=== PATIENT | female | born 1990 | race Caucasian/White ===

== ENCOUNTER 2017-10-08 22:52 | Outpatient (CLI) | payer BC ==
[~2017-10-08] VITALS: Ht 177.8 cm; Wt 94.5 kg
[2017-10-08] MEDS ORDERED: ZANTAC 150MG T150 MG PO (23:16)
[2017-10-08 23:40] VITALS: BP 131/63; PULSE 88
[2017-10-09 00:10] VITALS: BP 124/82; PULSE 86
== END 2017-10-09 00:45 | disposition home or self-care (01) ==
LOC: LDRO 22:52
DX: Z34.83 Encounter for supervision of other normal pregnancy, third trimester (principal); Z3A.40 40 weeks gestation of pregnancy

== ENCOUNTER 2017-10-17 06:09 | Inpatient (IN) | payer BC ==
[~2017-10-17] VITALS: Ht 177.8 cm; Wt 95.0 kg
[2017-10-17] VITALS (26 sets, daily range): BP systolic 92–137; BP diastolic 56–81; PULSE 75–95; TEMP 97.3–98.3
[~2017-10-17 06:09] MED LIST: ZANTAC 150MG T150 MG PO
[2017-10-17 07:16] LABS: BASO % 0.4 % (0.0-2.0); EOS # 0.5 (0.0-0.7); EOS % 4.8 % (0-4.0); GRAN # 7.4 (1.4-6.5); LYMPH # 1.2 (1.2-3.4); LYMPH % 11.9 % (20.0-51.0); MEAN CELL VOLUME 89 fl (80.0-100.0); MEAN CORPUSCULAR HGB CONC 32 g/dl (33.0-37.0); MEAN PLATELET VOLUME 10.5 fl (7.4-10.4); MONO % 9.5 % (1.7-9.3); PLATELET COUNT 223 K/mm3 (130-400); REDCELL DISTRIBUTION WIDTH-CV 14.7 % (11.5-14.5)
[2017-10-17 07:17] LABS: HEMOGLOBIN 10.8 g/dl (12.5-16.0); MEAN CORPUSCULAR HEMOGLOBIN 28 pg (27.0-31.0)
[2017-10-17 07:18] LABS: HEMATOCRIT 33.7 % (37.0-47.0)
[2017-10-18] VITALS: BP 118/69; PULSE 74; TEMP 97.9
[2017-10-18 04:00] VITALS: BP 116/64; PULSE 85; TEMP 97.7
[2017-10-18 07:45] VITALS: BP 111/63; PULSE 84; TEMP 98.1
[2017-10-18 17:30] VITALS: BP 105/70; PULSE 86; TEMP 99.1
[2017-10-18 19:00] VITALS: BP 119/65; PULSE 80; TEMP 97.5
[2017-10-19 08:28] VITALS: BP 123/62; PULSE 81; TEMP 97.7
[2017-10-19] MEDS ORDERED: IBU600 MG PO (08:40)
[2017-10-19] MEDS ORDERED: PERCOCET 325 MG1 TA2 PO (08:40)
== END 2017-10-19 15:50 | disposition home or self-care (01) | DRG 775 ==
LOC: LDRO 06:09 → OB 06:33 → LDR 06:33 → OB 13:30
PROVIDERS: Obstetrics & Gynecology
PROC: 10E0XZZ Delivery of Products of Conception, External Approach (ICD-10-PCS; principal; 2017-10-17)
PROC: 0KQM0ZZ Repair Perineum Muscle, Open Approach (ICD-10-PCS; 2017-10-17)
DX: O48.0 Post-term pregnancy (principal); O36.0130 Maternal care for anti-D [Rh] antibodies, third trimester, not applicable or unspecified; O77.0 Labor and delivery complicated by meconium in amniotic fluid; O70.1 Second degree perineal laceration during delivery; Z3A.41 41 weeks gestation of pregnancy; Z37.0 Single live birth
CPT/HCPCS: J2590; J2795; J7120

== ENCOUNTER → 2017-10-26 | Outpatient (CLI) | payer BC ==
[~2017-10-26] MED LIST changes: +IBU600 MG PO; +PERCOCET 325 MG1 TA2 PO
== END ==
LOC: LAC 10:26
DX: Z39.1 Encounter for care and examination of lactating mother (principal); Z71.89 Other specified counseling

== ENCOUNTER → 2018-07-07 | Outpatient (CLI) | payer BC | LOC: MC.RAD 09:30 | DX: N63.10 Unspecified lump in the right breast, unspecified quadrant (principal) ==

== ENCOUNTER 2019-08-18 02:59 | Inpatient (IN) | payer BC ==
[2019-08-18] VITALS (29 sets, daily range): BP systolic 101–135; BP diastolic 58–82; PULSE 63–93; TEMP 97.5–98.5
[~2019-08-18] VITALS: Ht 177.8 cm; Wt 95.5 kg
[2019-08-18] MEDS ORDERED: PROTONIX20 MG PO (03:29)
[2019-08-18] MEDS ORDERED: ZANTAC 7575 MG PO (03:30)
[2019-08-18] MEDS ORDERED: TUMS500 MG PO (03:31)
[2019-08-18] MEDS ORDERED: PRENATAL PO (03:31)
[2019-08-18 05:01] LABS: BASO % 0.5 % (0.0-2.0); EOS # 0.1 (0.0-0.7); EOS % 1.2 % (0-4.0); GRAN # 5.6 (1.4-6.5); GRAN % 66.4 % (42.2-75.2); HEMATOCRIT 29.7 % (37.0-47.0); HEMOGLOBIN 9.4 g/dl (12.5-16.0); LYMPH # 1.7 (1.2-3.4); LYMPH % 20.5 % (20.0-51.0); MEAN CELL VOLUME 88 fl (80.0-100.0); MEAN CORPUSCULAR HEMOGLOBIN 28 pg (27.0-31.0); MEAN CORPUSCULAR HGB CONC 32 g/dl (33.0-37.0); MEAN PLATELET VOLUME 11.3 fl (7.4-10.4); MONO # 0.9 (0.1-0.6); MONO % 10.9 % (1.7-9.3); PLATELET COUNT 179 K/mm3 (130-400); RED BLOOD COUNT 3.36 M/mm3 (4.10-5.30); REDCELL DISTRIBUTION WIDTH-CV 14.4 % (11.5-14.5)
--- NOTE | 2019-08-18 06:03 | NUR ---
0535 - MELANY Oakes at bedside for epidural placement. Pt positioned to sitting on edge of bed. Risks, benefits, and procedure explained to patient, verbalized understanding. 0600 - Difficulty tracing FHR due to maternal positioning, RN attempting to handhald US. 0603 - Test dose by MELANY Oakes. Pt denies any adverse reactions. 0610 - Pt positioned to wedge left. Educated patient on safety precautions, call light within reach, bed in low and locked position. Plan of care reviewed.
--- NOTE | 2019-08-18 10:18 | NUR ---
BY DR STAFFORD. TO MOTHERS CHEST IN CARE OF MELISSA KIM RN. PLACENTA SPON DELIVERED AT 1022. PITOCIN AT 333 MLS/ HOUR. 2ND DEGREE LACERATION REPIARED BY DR STAFFORD. ICE PACK TO PERINEUM. RECOVERY STARTED AT 1030.
[2019-08-19 00:05] VITALS: BP 119/75; PULSE 67; TEMP 97.7
[2019-08-19 08:05] VITALS: BP 122/65; PULSE 77; TEMP 98.1
[2019-08-19] MEDS ORDERED: IBU600 MG PO (10:36)
--- NOTE | 2019-08-19 12:52 | NUR ---
Air Quality Technician offered congrats to family.
[2019-08-19 16:20] VITALS: BP 126/71; PULSE 79; TEMP 97.9
[2019-08-19 20:00] VITALS: BP 123/74; PULSE 83; TEMP 99.1
[2019-08-20 07:40] VITALS: BP 116/78; PULSE 86; TEMP 97.1
== END 2019-08-20 08:15 | disposition home or self-care (01) | DRG 807 ==
LOC: LDRO 02:59 → LDR 03:10 → OB 13:00
PROVIDERS: Obstetrics & Gynecology; ADMIT Obstetrics & Gynecology
PROC: 10E0XZZ Delivery of Products of Conception, External Approach (ICD-10-PCS; principal; 2019-08-18)
PROC: 0KQM0ZZ Repair Perineum Muscle, Open Approach (ICD-10-PCS; 2019-08-18)
PROC: 10907ZC Drainage of Amniotic Fluid, Therapeutic from Products of Conception, Via Natural or Artificial Opening (ICD-10-PCS; 2019-08-18)
DX: O70.1 Second degree perineal laceration during delivery (principal); Z37.0 Single live birth; Z3A.40 40 weeks gestation of pregnancy; O90.81 Anemia of the puerperium; D64.9 Anemia, unspecified
CPT/HCPCS: J2590; J7120